=== PATIENT | female | born 1970 | race Caucasian/White ===

== ENCOUNTER 2024-06-11 12:28 | Outpatient (CLI) | payer OTHER, SELFPAY | END 2024-06-11 12:29 | disposition home or self-care (01) | LOC: NFLDREF 06-13 12:59 | PROVIDERS: Visit Provider Physician Assistant | DX: R30.0 Dysuria (principal); R03.0 Elevated blood-pressure reading, without diagnosis of hypertension | CPT/HCPCS: 87086 ==